=== PATIENT | female | born 1935 | race American Indian/Alaskan Native ===

== ENCOUNTER 2016-04-02 10:30 | Inpatient (IN) | payer MEDICARE ==
[2016-03-22 08:26] VITALS: BMI 25.2
[2016-06-11] MEDS ORDERED: ceFAZolin IV 1 gm in Dextrose 50 ML IVPB ONE (07:21)
[2016-06-11] MEDS ORDERED: Bupivacaine HCl 0.5% PF (10 ml) Inj ONE ×2 (07:21→07:22)
[2016-06-11] MEDS ORDERED: Propofol 10 mg/ml Inj (20 ML) ONE (07:33)
[2016-06-11] MEDS ORDERED: Midazolam 2 MG/2 ML VIAL ONE (07:33)
[2016-06-11] MEDS ORDERED: Mannitol 12.5 gm/50 ml Inj IV ONE ×2 (07:44→09:31)
[2016-06-11] MEDS ORDERED: Lactated Ringer's 1,000 ML IV ONE ×2 (08:35→08:50)
[2016-06-11] MEDS ORDERED: Neostigmine Methylsulfate 3mg/3ml Syringe IV ONE (09:20)
[2016-06-11] MEDS: Mannitol 12.5 gm/50 ml Inj IV ONE ×2 (09:27→09:28)
[2016-06-11] MEDS ORDERED: HYDROmorphone 0.5 mg/0.5 ml ISec IVP PRN (09:32)
[2016-06-11] MEDS ORDERED: Morphine 4 MG/ML VIAL ONE (10:05)
--- NOTE | 2016-06-11 11:45 | OP ---
PROCEDURE DATE: 06/11/2016 SURGEON: Dr. Hardik Nuñez. ROOFING LAYER: Dr. Mariaelena Torres. PREOPERATIVE DIAGNOSIS: Left renal mass. POSTOPERATIVE DIAGNOSIS: Left renal mass. PROCEDURE PERFORMED: Left renal exploration, ultrasound intraop, and left partial nephrectomy. COMPLICATIONS: None. ANESTHESIA: General. DESCRIPTION OF PROCEDURE: The patient was in the dorsal supine position. After anesthesia was obtai dilia, the patient was placed in the left lower lateral position. All the pressure points were padded and then table was flexed slightly and kidney was elevated and then patient was prepped in usual [facility] er. The incision was made, deepened to subcutaneous tissue above the umbilicus and a little bit supe rior and insufflation was done. Then, 8 mm camera port was placed under direct vision, 3 additional 8 mm ports and one 12 mm graphic design assistant port was placed. Then, the robot was docked. Adhesions were take n down and colon was mobilized medially and then kidney was mobilized further medially. Then the hil um was identified, the renal vein, and renal artery was identified. Renal artery was completely iden tified and freed so a bulldog clamp could be placed during the partial. Then kidney was mobilized an d a renal mass was found on the mid lower lateral. Ultrasound was done to confirm the mass and the m argin was marked. Then scoring was done and then clamp on the artery was placed after giving mannito l. Then the deep margin was taken all the way into the deep tissue and the mass was excised entirely with good margin. Deep margin was sent for frozen. Frozen came back negative. We closed the bed u sing 3-0 Monocryl, then closed the capsule using V-Loc and then brought the fat over and then artery was unclamped. Clamp time was about 13 minutes. There was no bleeding seen. Then the kidney was re peritonealized, drain was placed. Tumor was placed in the bag and then fascia was closed using 0 Kin ryl. Skin was stapled. Hardik Nuñez MD cc: [id number] TT: 06/11/2016 11:44:29 an
[2016-06-11] MEDS: Potassium Ch 20mEq in D5-1/2NS 1,000 ML IV SCH ×2 (17:00→21:17)
--- NOTE | 2016-06-11 22:43 | CP.PCM.CON ---
<Lucrecia Lawton - Last Filed: 06/11/16 22:35> History of Present Illness - History of Present Illness History of Present Illness: Medicine Consult- Hospitalist Service 81 year old AA female with PMHx of HTN and left renal mass is POD#0 s/p robotic assisted partial left nephrectomy with Dr. Nuñez. Patient states she was in good health up until January 2016 when she went to the hospital with abdominal pain. At that time, patient had an "obstruction" which was decompressed with NGT. Patient's left renal mass was an incidental finding. She takes Losartan- HCTZ at home for HTN. She reports significant family history of malignancies. She admits to some soreness over surgical sites. Denies nausea, vomiting, diarrhea, constipation, fevers, chills, headache, shortness of breath, leg pain or swelling. PMHx: HTN and left renal mass. Medication: Losartan-HCTZ Allergies: NKDA Family Hx: mother with rectal CA, father with DC at 54, brother of prostate CA at 54, sister of BCA at 51, brother with neck cancer. Surgerry Hx: ruptured appendix with open appendectomy, left partial nephrectomy. Social Hx: denies tobacco, drug use. Admits to one drink during special occasions. PMD: Dr. Garcia Review of Systems - Constitutional Constitutional: absent: Chills, Fatigue, Fever - EENT Eyes: absent: Blurred Vision, Change in Vision Ears: absent: Dizziness - Cardiovascular Cardiovascular: absent: Chest Pain, Chest Pain at Rest, Claudication, Diaphoresis, Dyspnea, Edema - Respiratory Respiratory: absent: Cough, Dyspnea, Wheezing - Gastrointestinal Gastrointestinal: Abdominal Pain. absent: Bloating, Constipation, Diarrhea, Nausea, Vomiting - Genitourinary Genitourinary: absent: Difficulty Urinating, Dysuria - Musculoskeletal Musculoskeletal: absent: Myalgias, Numbness, Tingling - Integumentary Integumentary: absent: Wounds - Neurological Neurological: absent: Numbness, Syncope, Tingling, Weakness - Psychiatric Psychiatric: absent: Anxiety - Endocrine Endocrine: absent: Fatigue, Palpitations Past Patient History - Past Medical History & Family History Past Medical History?: Yes - Past Social History Smoking Status: Former Smoker - CARDIAC Hx Cardiac Disorders: Yes Hx Angina: Yes Hx Hypertension: Yes Hx Peripheral Edema: Yes - PULMONARY Hx Respiratory Disorders: No - NEUROLOGICAL Hx Migraine: Yes (WHEN YOUNGER) - HEENT Hx HEENT Problems: Yes (GLASSES) Hx Cataracts: Yes (BILATERAL IOLI) - RENAL Other/Comment: LEFT RENAL MASS - ENDOCRINE/METABOLIC Hx Endocrine Disorders: No - HEMATOLOGICAL/ONCOLOGICAL Hx Anemia: Yes Hx Blood Transfusions: Yes Hx Blood Transfusion Reaction: No Other/Comment: LESION LEFT UPPER EYELID/HAS BEEN REMOVED SEVERAL TIMES - INTEGUMENTARY Hx Dermatological Problems: Yes Hx Eczema: Yes - MUSCULOSKELETAL/RHEUMATOLOGICAL Hx Falls: Yes (3 months ago) - GASTROINTESTINAL Hx Gastrointestinal Disorders: No Hx Gall Bladder Disease: Yes - GENITOURINARY/GYNECOLOGICAL Other/Comment: LEFT RENAL MASS - PSYCHIATRIC Hx Psychophysiologic Disorder: No - SURGICAL HISTORY Hx Surgeries: Yes Hx Appendectomy: Yes Hx Cataract Extraction: Yes (BILATERAL IOLI) Hx Cholecystectomy: Yes Hx Eye Surgery: Yes (EXC LEFT UPPER LID LESION) - ANESTHESIA Hx Anesthesia: Yes Hx Anesthesia Reactions: No Hx Malignant Hyperthermia: No Has any member of the family had a problem w/ anesthesia?: (UNKNOWN) Meds Allergies/Adverse Reactions: Allergies Allergy/AdvReac Type Severity Reaction Status Date / Time No Known Allergies Allergy Verified 03/22/16 08:25 - Medications Medications: Current Medications Acetaminophen (Tylenol 325mg Tab) 650 mg PO Q4 PRN PRN Reason: Pain, moderate (4-7) Docusate Sodium (Colace) 100 mg PO TID [facility] Hydrochlorothiazide (Microzide) 12.5 mg PO DAILY [facility] Potassium Chloride/Dextrose/Sod Cl (Potassium Chl 20 Meq In D5-1/2ns) 1,000 mls @ 100 mls/hr IV .Q10H [facility] Last Admin: 06/11/16 21:17 Dose: Not Given Ceftriaxone Sodium (Rocephin Iv 1 Gm Duplex) 50 mls @ 100 mls/hr IVPB DAILY [facility] Losartan Potassium (Cozaar) 50 mg PO DAILY [facility] Physical Exam - Constitutional Appears: No Acute Distress - Head Exam Head Exam: NORMAL INSPECTION, NORMOCEPHALIC - Eye Exam Eye Exam: EOMI, Normal appearance - ENT Exam ENT Exam: Mucous Membranes Moist - Neck Exam Neck exam: Positive for: Full Rom, Normal Inspection - Respiratory Exam Respiratory Exam: Clear to Auscultation Bilateral, NORMAL BREATHING PATTERN - Cardiovascular Exam Cardiovascular Exam: REGULAR RHYTHM, +S1, +S2 - GI/Abdominal Exam GI & Abdominal Exam: Normal Bowel Sounds, Soft. absent: Distended, Tenderness Additional comments: +surgical port sites with dressing c/d/i. +ANCA drain in place L side. - Extremities Exam Extremities exam: Positive for: full ROM, normal inspection. Negative for: pedal edema, tenderness - Back Exam Back exam: NORMAL INSPECTION - Neurological Exam Neurological exam: Alert, Oriented x3 Results - Labs Labs: Laboratory Results - last 24 hr 06/11/16 07:16 Blood Type O NEGATIVE Antibody Screen Negative Assessment & Plan (1) Left renal mass Assessment and Plan: POD#0 s/p robotic assisted partial left nephrectomy with Dr. Nuñez. Dr. Patty Torres (urology) following Tylenol PRN for pain Rocephin IVPB as per uro Colace 100 mg PO TID Status: Acute (2) HTN (hypertension) Assessment and Plan: Restart home medications as per primary team. Losartan 50 mg PO daily HCTZ 12.5 mg PO daily Monitor BP Status: Chronic (3) Prophylactic measure Assessment and Plan: Protonix 40 mg PO daily SCDs Status: Acute <Herb Laurent - Last Filed: 06/12/16 06:35> Meds - Medications Medications: Current Medications Acetaminophen (Tylenol 325mg Tab) 650 mg PO Q4 PRN PRN Reason: Pain, moderate (4-7) Last Admin: 06/11/16 22:48 Dose: 650 mg Docusate Sodium (Colace) 100 mg PO TID [facility] Hydrochlorothiazide (Microzide) 12.5 mg PO DAILY [facility] Potassium Chloride/Dextrose/Sod Cl (Potassium Chl 20 Meq In D5-1/2ns) 1,000 mls @ 100 mls/hr IV .Q10H [facility] Last Admin: 06/12/16 03:42 Dose: 100 mls/hr Ceftriaxone Sodium (Rocephin Iv 1 Gm Duplex) 50 mls @ 100 mls/hr IVPB DAILY [facility] Losartan Potassium (Cozaar) 50 mg PO DAILY [facility] Last Admin: 06/11/16 22:48 Dose: 50 mg Pantoprazole Sodium (Protonix Ec Tab) 40 mg PO DAILY [facility] Results - Vital Signs Recent Vital Signs: Last Vital Signs Temp 97.4 F L 06/12/16 04:00 Pulse 68 06/12/16 04:00 Resp 20 06/12/16 04:00 BP 157/81 H 06/12/16 04:00 Pulse Ox 99 06/12/16 04:00 - Labs Result Diagrams: 06/12/16 06:00 Labs: Laboratory Results - last 24 hr 06/11/16 06/12/16 07:16 06:00 Sodium 136 Potassium 4.7 Chloride 100 Carbon Dioxide 26 Anion Gap 15 BUN 20 H Creatinine 1.0 Est GFR ( Amer) > 60 Est GFR (Non-Af Amer) 53 Random Glucose 121 H Calcium 8.0 L Blood Type O NEGATIVE Antibody Screen Negative Assessment & Plan - Date & Time Date: 06/12/16 (I have seen and examined the patient. I agree with the findings and plan of care as documented by Dr. Lawton. Patient with left renal mass, now status post partial left nephrectomy. Management as per Dr Torres. Currently on Rocephin. Symptomatic management. Monitor renal function. For history of hypertension, continue home meds - Losartan and HCTz. Adjust as necessary. Monitor for acute changes.) Time: 06:32 Attending/Attestation - Attestation I have personally seen and examined this patient.: Yes I have fully participated in the care of the patient.: Yes I have reviewed all pertinent clinical information: Yes
[2016-06-12] MEDS: Potassium Ch 20mEq in D5-1/2NS 1,000 ML IV SCH (03:42)
[2016-06-12 06:18] LABS: HEMATOCRIT 31.4 % (34.0-47.0); MEAN CELL VOLUME 84.5 fL (81.0-99.0); MEAN CORPUSCULAR HEMOGLOBIN 27.4 pg (27.0-31.0); MEAN CORPUSCULAR HGB CONC 32.4 g/dL (33.0-37.0); MEAN PLATELET VOLUME 7.2 fL (7.2-11.7); RED CELL DISTRIBUTION WIDTH 14.5 % (11.5-14.5); WHITE BLOOD COUNT 7.8 K/uL (4.8-10.8)
[2016-06-12 06:20] LABS: CHLORIDE 100 mmol/L (98-107); POTASSIUM 4.7 mmol/L (3.6-5.2); SODIUM 136 mmol/L (132-148)
[2016-06-12 06:23] LABS: BLOOD UREA NITROGEN 20 mg/dL (7-17); CARBON DIOXIDE 26 mmol/L (22-30); GFR AFRICAN-AMERICAN > 60
[2016-06-12 06:24] LABS: GLUCOSE,RANDOM 121 mg/dL (65-105)
[2016-06-12] MEDS: Pantoprazole 40 mg EC Tab PO SCH (10:00)
[2016-06-12] MEDS: cefTRIAXone IV 1 gm in Dextros 50 ML IVPB SCH (10:00)
--- NOTE | 2016-06-12 10:29 | PCM.URO ---
Urology Progress Note - General General: Tolerating Diet - Subjective Abdominal Pain: Yes Flank Pain: Yes Nausea: No Vomiting: No Hematuria: No Dsypnea: No Chest Pain: No Fever & Chills: No - Objective Lab Studies: Reviewed Lab Results Last 24 Hours: Laboratory Results - last 24 hr 06/12/16 06:00 WBC 7.8 D RBC 3.71 L Hgb 10.2 L Hct 31.4 L MCV 84.5 MCH 27.4 MCHC 32.4 L RDW 14.5 Plt Count 275 MPV 7.2 Sodium 136 Potassium 4.7 Chloride 100 Carbon Dioxide 26 Anion Gap 15 BUN 20 H Creatinine 1.0 Est GFR ( Amer) > 60 Est GFR (Non-Af Amer) 53 Random Glucose 121 H Calcium 8.0 L Intake & Output: Intake & Output 06/11/16 06/12/16 06/12/16 18:59 06:59 18:59 Intake Total 450 900 Output Total 575 1267 Balance -125 -367 Intake: IV 450 Intake, IV Amount 800 Right Antecubital 800 Oral 100 Output: Drainage 17 Left Lower Abdomen 7 Urine 575 1250 Urethral (Rosales) 1000 Other: Voiding Method Indwelling Catheter # Bowel Movements 0 Vital Signs: Vital Signs - 24 hr 06/11/16 06/11/16 06/11/16 22:10 22:48 23:05 Temperature 98.4 F 98.1 F Pulse Rate 66 Pulse Rate [ 60 Right Radial] Respiratory 16 20 Rate Blood Pressure 160/91 H O2 Sat by Pulse 98 Oximetry 06/11/16 06/12/16 06/12/16 23:48 04:00 08:31 Temperature 98.1 F 97.4 F L 98.2 F Pulse Rate 68 73 Pulse Rate [ Right Radial] Respiratory 20 20 Rate Blood Pressure 157/81 H 146/89 O2 Sat by Pulse 99 99 Oximetry - Physical Exam Abdominal Exam: Soft, Non-Distended Bowel Sounds: Hypoactive Dressing: Dry, Intact Back: No CVA Tenderness Urinary Catheter Draining Well: Yes Urine Color: Yellow Extremities: Normal: Bilateral - Plan Advance Diet: Yes Pulmonary Toilet: Yes Discontinue Urinary Catheter: Yes Ambulation - Out of Bed: Yes Intake & Output: Yes See Orders: Yes Additional Information: Lungs- clear. heart- reg rhythm. IMP: DOING WELL - Date & Time of Note Date: 06/12/16 Time: 10:29
--- NOTE | 2016-06-12 10:44 | CP.PCM.PN ---
<Sabrina Esqueda - Last Filed: 06/12/16 15:17> Subjective - Date & Time of Evaluation Date of Evaluation: 06/12/16 Time of Evaluation: 09:30 - Subjective Subjective: Internal medicine consult progress note for Hospitalist-Sabrina Esqueda, PGY-1 Pt S & E at bedside. Pt reports some sensation of pressure in her bladder - has Rosales catheter in place after surgery. Right sided abdominal/flank pain well controlled. Having flatus. No BM yet. Denies N/V/F/C, SOB, CP. Is tolerating liquid diet, slept ok. Objective - Vital Signs/Intake and Output Vital Signs (last 24 hours): Temp Pulse Resp BP Pulse Ox 98.2 F 73 20 146/89 99 06/12/16 08:31 06/12/16 08:31 06/12/16 08:31 06/12/16 08:31 06/12/16 08:31 Intake and Output: 06/12/16 06/12/16 06:59 18:59 Intake Total 900 Output Total 1267 Balance -367 - Medications Medications: Current Medications Acetaminophen (Tylenol 325mg Tab) 650 mg PO Q4 PRN PRN Reason: Pain, moderate (4-7) Last Admin: 06/11/16 22:48 Dose: 650 mg Docusate Sodium (Colace) 100 mg PO TID [facility] Hydrochlorothiazide (Microzide) 12.5 mg PO DAILY [facility] Potassium Chloride/Dextrose/Sod Cl (Potassium Chl 20 Meq In D5-1/2ns) 1,000 mls @ 100 mls/hr IV .Q10H [facility] Last Admin: 06/12/16 03:42 Dose: 100 mls/hr Ceftriaxone Sodium (Rocephin Iv 1 Gm Duplex) 50 mls @ 100 mls/hr IVPB DAILY [facility] Losartan Potassium (Cozaar) 50 mg PO DAILY [facility] Last Admin: 06/11/16 22:48 Dose: 50 mg Pantoprazole Sodium (Protonix Ec Tab) 40 mg PO DAILY [facility] - Labs Labs: 06/12/16 06:00 06/12/16 06:00 - Constitutional Appears: Non-toxic, No Acute Distress - Head Exam Head Exam: ATRAUMATIC, NORMAL INSPECTION, NORMOCEPHALIC - Eye Exam Eye Exam: EOMI, Normal appearance, PERRL Pupil Exam: NORMAL ACCOMODATION, PERRL - ENT Exam ENT Exam: Mucous Membranes Moist, Normal Exam - Neck Exam Neck Exam: Full ROM, Normal Inspection - Respiratory Exam Respiratory Exam: Clear to Ausculation Bilateral, NORMAL BREATHING PATTERN. absent: Rales, Rhonchi, Wheezes - Cardiovascular Exam Cardiovascular Exam: REGULAR RHYTHM, +S1, +S2 - GI/Abdominal Exam GI & Abdominal Exam: Soft, Tenderness (RUQ/RlQ and R flank- over incision sites , ANCA drain in place with ~15 cc serosanginous output, dressings with scant sanguinous strike through, otherwise dry/intact), Normal Bowel Sounds. absent: Distended, Firm, Guarding, Rigid - Extremities Exam Extremities Exam: Normal Inspection. absent: Pedal Edema - Neurological Exam Neurological Exam: Alert, Awake, CN II-XII Intact, Oriented x3 - Psychiatric Exam Psychiatric exam: Normal Affect, Normal Mood - Skin Skin Exam: Dry, Intact, Normal Color, Warm Assessment and Plan - Assessment and Plan (Free Text) Assessment: (1) Left renal mass POD #1 s/p robotic assisted partial L nephrectomy Tylenol PRN for pain Rocephin IVPB as per uro Colace 100 mg PO TID further mgmt as per Dr. Torres (primary) (2) HTN (hypertension) BP 146/89 Losartan 50 mg PO daily HCTZ 12.5 mg PO daily Monitor BP (3) Prophylactic measure Protonix 40 mg PO daily SCDs Dispo As per Dr. Torres (primary) cont current mgmt DW attending <Elena Sommer V - Last Filed: 06/13/16 05:05> Objective - Vital Signs/Intake and Output Vital Signs (last 24 hours): Temp Pulse Resp BP Pulse Ox 99.3 F 92 H 20 151/84 H 96 06/13/16 00:00 06/13/16 00:00 06/13/16 00:00 06/13/16 00:00 06/13/16 00:00 Intake and Output: 06/12/16 06/13/16 18:59 06:59 Intake Total 550 Output Total 690 Balance -140 - Medications Medications: Current Medications Acetaminophen (Tylenol 325mg Tab) 650 mg PO Q4 PRN PRN Reason: Pain, moderate (4-7) Last Admin: 06/12/16 13:02 Dose: 650 mg Docusate Sodium (Colace) 100 mg PO TID [facility] Last Admin: 06/12/16 17:10 Dose: 100 mg Hydrochlorothiazide (Microzide) 12.5 mg PO DAILY [facility] Last Admin: 06/12/16 10:00 Dose: 12.5 mg Potassium Chloride/Dextrose/Sod Cl (Potassium Chl 20 Meq In D5-1/2ns) 1,000 mls @ 100 mls/hr IV .Q10H [facility] Last Admin: 06/13/16 01:36 Dose: 100 mls/hr Ceftriaxone Sodium (Rocephin Iv 1 Gm Duplex) 50 mls @ 100 mls/hr IVPB DAILY [facility] Last Admin: 06/12/16 10:00 Dose: 100 mls/hr Losartan Potassium (Cozaar) 50 mg PO DAILY [facility] Last Admin: 06/12/16 10:00 Dose: 50 mg Pantoprazole Sodium (Protonix Ec Tab) 40 mg PO DAILY [facility] Last Admin: 06/12/16 10:00 Dose: 40 mg - Labs Labs: 06/12/16 06:00 06/12/16 06:00 Attending/Attestation - Attestation I have personally seen and examined this patient.: Yes I have fully participated in the care of the patient.: Yes I have reviewed all pertinent clinical information, including history, physical exam and plan: Yes Notes (Text): This is a late computer entry for 06/12/16. Patient seen, examined and case discussed with day-time resident. Patient is POD 1 s/p robotic assisted partial L nephrectomy for left sided renal mass. Management as per urology. Patient's vital signs are stable this morning. Patient's blood pressure is controlled with her home medications. Patient reports she has not had flatus this morning, on liquid diet, and reports she was placed on abdominal binder by urologist and recommended to walk and get out of bed this morning. Patient is mildly anemic postoperative day one; no prior blood work in hospital to compare with for baseline hemoglobin. Will continue to monitor
[2016-06-13] MEDS: Potassium Ch 20mEq in D5-1/2NS 1,000 ML IV SCH (01:36)
[2016-06-13] MEDS: Pantoprazole 40 mg EC Tab PO SCH (10:13)
[2016-06-13] MEDS: cefTRIAXone IV 1 gm in Dextros 50 ML IVPB SCH (10:13)
--- NOTE | 2016-06-13 13:13 | CP.PCM.PN ---
<Sabrina Esqueda - Last Filed: 06/13/16 13:12> Subjective - Date & Time of Evaluation Date of Evaluation: 06/13/16 Time of Evaluation: 07:30 - Subjective Subjective: Internal medicine consult progress note for Hospitalist-Sabrina Esqueda, PGY-1 Pt S & E at bedside. Pt reports lots of urination overnight, feels that sleep was interrupted a lot to urinate. Denies dysuria, currently on IVF as per urology. Right sided abdominal/flank pain well controlled, reports small BM this AM. Is getting out of bed and ambulating. Tolerating diet. Denies N/V/F/C, SOB, CP. Objective - Vital Signs/Intake and Output Vital Signs (last 24 hours): Temp Pulse Resp BP Pulse Ox 98.7 F 95 H 18 147/84 95 06/13/16 08:39 06/13/16 11:56 06/13/16 08:39 06/13/16 08:39 06/13/16 11:56 Intake and Output: 06/13/16 06/13/16 06:59 18:59 Intake Total 920 Output Total 810 Balance 110 - Medications Medications: Current Medications Acetaminophen (Tylenol 325mg Tab) 650 mg PO Q4 PRN PRN Reason: Pain, moderate (4-7) Last Admin: 06/12/16 13:02 Dose: 650 mg Docusate Sodium (Colace) 100 mg PO TID [facility] Last Admin: 06/13/16 10:13 Dose: 100 mg Hydrochlorothiazide (Microzide) 12.5 mg PO DAILY [facility] Last Admin: 06/13/16 10:13 Dose: 12.5 mg Ceftriaxone Sodium (Rocephin Iv 1 Gm Duplex) 50 mls @ 100 mls/hr IVPB DAILY [facility] Last Admin: 06/13/16 10:13 Dose: 100 mls/hr Losartan Potassium (Cozaar) 50 mg PO DAILY [facility] Last Admin: 06/13/16 10:13 Dose: 50 mg Pantoprazole Sodium (Protonix Ec Tab) 40 mg PO DAILY [facility] Last Admin: 06/13/16 10:13 Dose: 40 mg - Labs Labs: 06/12/16 06:00 06/12/16 06:00 Assessment and Plan - Assessment and Plan (Free Text) Assessment: (1) Left renal mass POD #2 s/p robotic assisted partial L nephrectomy Pain well controlled Tylenol PRN for pain Rocephin IVPB as per uro Colace 100 mg PO TID further mgmt as per Dr. Torres (primary) (2) HTN (hypertension) BP 147/84 Losartan 50 mg PO daily HCTZ 12.5 mg PO daily Monitor BP (3) Prophylactic measure Protonix 40 mg PO daily SCDs Dispo Pt doing well, medically stable Disposition as per Dr. Torres (primary) cont current mgmt DW attending <Elena Sommer V - Last Filed: 06/13/16 18:32> Objective - Vital Signs/Intake and Output Vital Signs (last 24 hours): Temp Pulse Resp BP Pulse Ox 100.4 F H 106 H 20 142/91 H 94 L 06/13/16 16:01 06/13/16 16:01 06/13/16 16:01 06/13/16 16:01 06/13/16 16:01 Intake and Output: 06/13/16 06/13/16 06:59 18:59 Intake Total 920 Output Total 810 700 Balance 110 -700 - Medications Medications: Current Medications Acetaminophen (Tylenol 325mg Tab) 650 mg PO Q4 PRN PRN Reason: Pain, moderate (4-7) Last Admin: 06/13/16 17:59 Dose: 650 mg Docusate Sodium (Colace) 100 mg PO TID [facility] Last Admin: 06/13/16 17:57 Dose: Not Given Hydrochlorothiazide (Microzide) 12.5 mg PO DAILY [facility] Last Admin: 06/13/16 10:13 Dose: 12.5 mg Ceftriaxone Sodium (Rocephin Iv 1 Gm Duplex) 50 mls @ 100 mls/hr IVPB DAILY [facility] Last Admin: 06/13/16 10:13 Dose: 100 mls/hr Losartan Potassium (Cozaar) 50 mg PO DAILY [facility] Last Admin: 06/13/16 10:13 Dose: 50 mg Pantoprazole Sodium (Protonix Ec Tab) 40 mg PO DAILY [facility] Last Admin: 06/13/16 10:13 Dose: 40 mg - Labs Labs: 06/12/16 06:00 06/12/16 06:00 Attending/Attestation - Attestation I have personally seen and examined this patient.: Yes I have fully participated in the care of the patient.: Yes I have reviewed all pertinent clinical information, including history, physical exam and plan: Yes Notes (Text): Patient seen, examined and case discussed this morning. Patient seen at bedside, patient is ambulating and had a small bowel movement this morning. Patient seen by urology this morning as well; discussed with Dr. Beltran Torres during rounds at bedside. Patient reports history of iron deficiency requiring iron supplementation in the past and has not been using iron supplements as of lately. Blood pressure is controlled. Patient medically stable during time of rounds; became febrile in the afternoon : Tmax: 1004.F is POD 2 from left renal mass s/p robotic assisted partial L nephrectomy. Patient is currently on antibiotics status post procedure. Management per urology.
[2016-06-13] MEDS ORDERED: Saccharomyces Boulardi 250 mg Cap PO SCH (18:45)
--- NOTE | 2016-06-13 23:07 | PCM.URO ---
Urology Progress Note - General General: No Complaints, Tolerating Diet - Subjective Abdominal Pain: No Flank Pain: No Nausea: No Vomiting: No Voiding Well: Yes Dysuria: No Hematuria: No [place]: Yes Dsypnea: No Chest Pain: No Fever & Chills: No Other: had bm - Objective Lab Studies: Reviewed (anemia) Intake & Output: Intake & Output 06/13/16 06/13/16 06/14/16 06:59 18:59 06:59 Intake Total 920 Output Total 810 700 Balance 110 -700 Intake: Intake, IV Amount 800 Right Antecubital 800 Oral 120 Output: Drainage 10 Left Lower Abdomen 10 Urine 800 700 Urethral (Rosales) 800 700 Other: # Voids Urethral (Rosales) 4 2 # Bowel Movements 1 Vital Signs: Vital Signs - 24 hr 06/13/16 06/13/16 06/13/16 00:00 08:39 11:56 Temperature 99.3 F 98.7 F Pulse Rate 92 H 99 H 95 H Respiratory 20 18 Rate Blood Pressure 151/84 H 147/84 O2 Sat by Pulse 96 96 95 Oximetry 06/13/16 16:01 Temperature 100.4 F H Pulse Rate 106 H Respiratory 20 Rate Blood Pressure 142/91 H O2 Sat by Pulse 94 L Oximetry - Physical Exam Abdominal Exam: Soft, Non-Tender, Non-Distended Bowel Sounds: Normal Wound: Clean Dressing: Intact Back: No CVA Tenderness Urine Color: Yellow (lungs: clear heart: reg rhythm) Extremities: Normal: Bilateral - Plan Discontinue Drain: Yes Ambulation - Out of Bed: Yes Intake & Output: Yes See Orders: Yes Additional Information: IMP: PROGRESSING WELL - Date & Time of Note Date: 06/13/16 Time: 08:50
[2016-06-14 08:03] VITALS: BP 142/94; PULSE 102; RESP 18; TEMP 99; O2SAT 96
--- NOTE | 2016-06-15 15:12 | CP.PCM.PN ---
<Sabrina Esqueda - Last Filed: 06/15/16 15:10> Subjective - Date & Time of Evaluation Date of Evaluation: 06/14/16 Time of Evaluation: 07:40 - Subjective Subjective: Internal medicine consult progress note for Hospitalist-Sabrina Esqueda, PGY-1 Pt S & E at bedside. Pt reports improved in urination overnight, abdominal pain well controlled, no complaints overnight. Denies N/V/F/C, SOB, CP, is ambulating to bathroom, eating well. Objective - Vital Signs/Intake and Output Vital Signs (last 24 hours): Temp Pulse Resp BP Pulse Ox 99 F 102 H 18 142/94 H 96 06/14/16 07:40 06/14/16 07:40 06/14/16 07:40 06/14/16 07:40 06/14/16 07:40 - Labs Labs: 06/12/16 06:00 06/12/16 06:00 - Constitutional Appears: Non-toxic, No Acute Distress - Head Exam Head Exam: ATRAUMATIC, NORMAL INSPECTION, NORMOCEPHALIC - Eye Exam Eye Exam: EOMI, Normal appearance, PERRL Pupil Exam: NORMAL ACCOMODATION, PERRL - ENT Exam ENT Exam: Mucous Membranes Moist, Normal Exam - Neck Exam Neck Exam: Full ROM, Normal Inspection - Respiratory Exam Respiratory Exam: Clear to Ausculation Bilateral, NORMAL BREATHING PATTERN. absent: Rales, Rhonchi, Wheezes, Respiratory Distress - Cardiovascular Exam Cardiovascular Exam: REGULAR RHYTHM, +S1, +S2 - GI/Abdominal Exam GI & Abdominal Exam: Soft, Tenderness (over R abdominal surgical incision sites - dressings in place with minimal dried sanguinous strike through, no ANCA in place), Normal Bowel Sounds. absent: Distended, Firm, Guarding, Rigid - Extremities Exam Extremities Exam: Full ROM, Normal Inspection. absent: Pedal Edema - Back Exam Back Exam: Full ROM, NORMAL INSPECTION - Neurological Exam Neurological Exam: Alert, Awake, CN II-XII Intact, Oriented x3 - Psychiatric Exam Psychiatric exam: Normal Affect, Normal Mood - Skin Skin Exam: Dry, Intact, Normal Color, Warm Assessment and Plan - Assessment and Plan (Free Text) Assessment: (1) Left renal mass POD #3 s/p robotic assisted partial L nephrectomy Pain well controlled Tylenol PRN for pain Rocephin IVPB as per uro Colace 100 mg PO TID further mgmt as per Dr. Torres (primary) (2) HTN (hypertension) BP 124/94 Losartan 50 mg PO daily HCTZ 12.5 mg PO daily Monitor BP (3) Prophylactic measure Protonix 40 mg PO daily SCDs Dispo Pt doing well, medically stable Disposition as per Dr. Torres (primary) Discharge as per Dr. Torres Meds reconciled cont current home meds Will DW attending <Elena Sommer V - Last Filed: 06/19/16 21:38> Objective - Vital Signs/Intake and Output Vital Signs (last 24 hours): Temp Pulse Resp BP Pulse Ox 99 F 102 H 18 142/94 H 96 06/14/16 07:40 06/14/16 07:40 06/14/16 07:40 06/14/16 07:40 06/14/16 07:40 - Labs Labs: 06/12/16 06:00 06/12/16 06:00 Attending/Attestation - Attestation Notes (Text): This is late computer entry for 06/14/16. Patient discharged as per urology. Resident placed discharge order per urology. Patient left prior to my arrival. Day prior, I had discussed with urology, patient is medically stable on .
== END 2016-06-14 10:25 | disposition home or self-care (01) | DRG 658 ==
LOC: C.9S 06-11 06:22 → C.6T 06-11 20:32
PROVIDERS: ADMIT Urology; ATTEND Urology
PROC: 8E0W4CZ Robotic Assisted Procedure of Trunk Region, Percutaneous Endoscopic Approach (ICD-10-PCS; 2016-06-11)
PROC: 0TB14ZZ Excision of Left Kidney, Percutaneous Endoscopic Approach (ICD-10-PCS; principal; 2016-06-11 07:45)
DX: C64.2 Malignant neoplasm of left kidney, except renal pelvis (principal); I10 Essential (primary) hypertension; Z87.891 Personal history of nicotine dependence; Z98.42 Cataract extraction status, left eye; Z98.41 Cataract extraction status, right eye; Z96.1 Presence of intraocular lens; Z91.81 History of falling; Z90.49 Acquired absence of other specified parts of digestive tract